=== PATIENT | female | born 1950 | race Caucasian/White ===

== ENCOUNTER 2022-03-24 05:47 | Inpatient (IN) | payer MEDICARE, MEDICAID ==
[2022-03-18 12:28] LABS: BASOPHILS # (AUTO) 0.1 X10'3 (0-0.2); BASOPHILS % (AUTO) 0.9 % (0-1); EOSINOPHILS # (AUTO) 0.2 X10'3 (0-0.9); EOSINOPHILS % (AUTO) 2.8 % (0-6); LYMPHOCYTES % (AUTO) 28.4 % (21-51); MEAN CORPUSCULAR HEMOGLOBIN 30.6 PG (27.0-31.0); MEAN CORPUSCULAR HGB CONC 33.2 g/dL (33.0-36.5); MEAN CORPUSCULAR VOLUME 92.1 FL (78-98); MEAN PLATELET VOLUME 7.2 FL (7.4-10.4); MONOCYTES # (AUTO) 0.5 X10'3 (0-0.9); MONOCYTES % (AUTO) 7.3 % (2-12); NEUTROPHILS # (AUTO) 4.2 X10'3 (1.8-7.7); NEUTROPHILS % (AUTO) 60.6 % (42-75); PRE OP HEMATOCRIT 47.6 % (35.0-45.0); PRE OP HEMOGLOBIN 15.8 g/dL (12.0-16.0); PRE OP PLATELET COUNT 250 X10'3 (140-440); RED BLOOD COUNT 5.17 X10'6 (4.20-5.60); RED CELL DISTRIBUTION WIDTH 14.7 % (11.5-14.5)
[2022-03-18 12:33] LABS: ALBUMIN/GLOBULIN RATIO 1.1 (1.1-1.5); ALKALINE PHOSPHATASE 116 IU/L (46-116); BLOOD UREA NITROGEN 15 MG/DL (7-18); BUN/CREATININE RATIO 20.3 (6.6-38.0); CALCIUM 9.3 MG/DL (8.5-10.1); CHLORIDE 103 MMOL/L (99-107); CREATININE 0.74 MG/DL (0.40-0.90); PRE OP ALT 34 U/L (30-65); PRE OP ANION GAP 6 (8-16); PRE OP AST 24 U/L (10-37); PRE OP BILIRUB, TOTAL 0.3 MG/DL (0.0-1.0); PRE OP GLUCOSE 102 MG/DL (70-104); PRE OP POTASSIUM 3.7 MMOL/L (3.4-5.1); PRE OP SODIUM 138 MMOL/L (135-145); TOTAL CARBON DIOXIDE 28.8 MMOL/L (24-32); TOTAL PROTEIN 7.8 G/DL (6.4-8.2); eGFR 77 ML/MIN
[~2022-03-24] VITALS: Ht 152.4 cm; Wt 47.7 kg
[2022-03-24] VITALS (37 sets, daily range): BP systolic 126–183; BP diastolic 78–109
[~2022-03-24 05:47] MED LIST: AMLO5TAB PO; ASPI-842 PO; BUPR-94 PO; CALC600T35 PO; CARI-75 PO; CHOL50CA2 PO; DOCUMENT DATE & TIME OF BETA-BLOCKER PO ONE; DOL10T PO; DOXE25CA3 PO; HAIR,SKIN,NAILS; INDOCYANINE GREEN 25 MG/10 ML VIAL IV ONE; LISI20TA28 PO; MALTODEXTRIN/FRUCTOSE 0.68 KCAL/ML LIQUID 296ML BOTTLE PO ONE; METO-395 PO; MULT-1249 PO; OMEG-5 PO; PRAV40TA3 PO; TRAM50TA2 PO; TRAZ150T78 PO; VITA-268 PO; VITE400C PO; ceFOXitin 2GM-NS 100mL ADDvant 100 ML IV ONE; famotidine 20mg tablet PO ONE; metroNIDAZOLE-Flagyl 500mg/NS 100ML IVPB IV ONE; ringers solution, lacted 1,000 ML IV SCH
[2022-03-24] MEDS ORDERED: ALBU18HF2 INH (06:34)
[2022-03-24] MEDS ORDERED: IPRA4AER IH (06:34)
[2022-03-24] MEDS ORDERED: ringers solution, lacted 1,000 ML IV SCH (07:40)
[2022-03-24] MEDS ORDERED: morphine 4 MG/ML inj SYRINge IV PRN (07:40)
[2022-03-24] MEDS ORDERED: proCHLORperazine 10 MG/2 ml inj IV PRN (07:40)
[2022-03-24] MEDS ORDERED: meperidine/PF 25mg/ml syringe IV PRN ×3 (07:40)
[2022-03-24] MEDS ORDERED: ondansetron/PF 4mg/2ml inj IV PRN ×2 (07:40→12:00)
[2022-03-24] MEDS ORDERED: morphine 2 MG/ML inj. syringe IV PRN (07:40)
[2022-03-24] MEDS ORDERED: midazolam 1 mg/ML 2ml injection ONE (07:41)
[2022-03-24] MEDS ORDERED: fentaNYL /PF 50mcg/ml 5ml ampule ONE ×2 (07:41→10:04)
[2022-03-24] MEDS ORDERED: ipratropium/albuterol 3ml nebule NEB ONE (07:41)
[2022-03-24] MEDS ORDERED: BUPIVAcaine 0.5% inj/PF 30 ML ONE (07:46)
[2022-03-24] MEDS ORDERED: tobramycin 40mg/ml inj ONE (07:46)
[2022-03-24] MEDS ORDERED: LIDOCAINE 1%/EPI 1:100,000 inj. 10 ML multi-dose vial ONE (07:46)
[2022-03-24] MEDS ORDERED: LIDOcaine 2% (20mg/ml) 5ml vial ONE (07:47)
[2022-03-24] MEDS ORDERED: propofol inj 20 ML IV ONE (07:47)
[2022-03-24] MEDS ORDERED: rocuronium 10mg/ml inj IV ONE ×2 (09:06)
[2022-03-24] MEDS ORDERED: hydrALAZINE 20mg/ml inj. IV ONE (09:06)
[2022-03-24] MEDS ORDERED: BUPIVAcaine 0.5% inj/PF 30 ml vial IJ ONE (09:58)
[2022-03-24] MEDS ORDERED: ondansetron/PF 4mg/2ml inj ONE (11:38)
[2022-03-24] MEDS ORDERED: acetaminophen 1,000mg/100ml IV 100 ML IV ONE (11:39)
--- NOTE | 2022-03-24 11:57 | NUR ---
Received from OR via BED, accompanied by Anesthesiologist DR DOYLE and report given by Anesthesiologist AND SUPERVISOR DRY PASTE. PT DROWSY, DENIES PAIN, ABDOMEN W/ 3 LAP SITES W/BANDAIDS CDI, DANIELA TO RLQ ABDOMEN W/SANGUINOUS DRAINAGE IN DANIELA TO BULB SX. Addendum: 03/24/22 at 1224 by Mira Rebollar RN Amended: Links added.
[2022-03-24] MEDS ORDERED: normal saline 1000ml 1,000 ML IV SCH (12:00)
[2022-03-24] MEDS ORDERED: naloxone 0.4 mg/ml inj IV PRN (12:00)
[2022-03-24] MEDS: HYDROmorph/NS 0.2 mg/ml PCA 100 ML IV SCH ×6 (13:52→23:00)
[2022-03-24] MEDS ORDERED: ketorolac trometh. 30mg/ml inj. IM SCH (14:00)
[2022-03-24] MEDS: acetaminophen 1,000mg/100ml IV 100 ML IV SCH ×2 (14:00→22:21)
[2022-03-24] MEDS ORDERED: ipratropium/albuterol 3ml nebule NEB PRN (15:10)
[2022-03-24] MEDS ORDERED: albuterol 2.5 MG/3 ML nebule NEB SCH (15:20)
[2022-03-24] MEDS: metoprolol succinate 25mg (24-HOUR) SR. Tablet PO SCH (15:32)
[2022-03-24] MEDS: ceFOXitin inj 1,000 MG in normal saline 100ml IV soln 100 ML IV SCH (15:52)
--- NOTE | 2022-03-24 16:47 | NUR ---
Transferred via BED, W/1 LARGE BAG OF Belongings, CELL PHONE AND DIE BAKER, GLASSES AND UPPER/LOWER DENTURES IN PTS MOUTH. BEDSIDE REPORT GIVEN TO RECEIVING RN, JOHNL, CALL LIGHT GIVEN, SIDE RAILS UP X 2, PT ALERT TO SAFETY, CALL LIGHT, ROOM. Special Issues communicated to receiving nurse. YES. Addendum: 03/24/22 at 1707 by Mira Rebollar RN Amended: Links added.
--- NOTE | 2022-03-24 17:15 | NUR ---
Patient in room [facility]. I have received report from Mira MUNOZ and had the opportunity to ask questions and assume patient care.
[2022-03-24] MEDS: metroNIDAZOLE-Flagyl 500mg/NS 100 ML IV SCH (17:24)
[2022-03-24] MEDS: potassium CL 20mEq in D5-1/2NS 1,000 ML IV SCH (17:27)
--- NOTE | 2022-03-24 17:45 | NUR ---
patient appears comfortable using dilaudid cadd pain well controlled.. Addy drain 70mls serosang drainage . lap sites x4 CDI. commenced on post ops will continue to monitor
--- NOTE | 2022-03-24 18:24 | NUR ---
Problems reprioritized. Patient report given, questions answered & plan of care reviewed with FLORINDA MUNOZ.
[2022-03-24] MEDS: albuterol 2.5 MG/3 ML nebule NEB SCH ×2 (18:58→22:47)
[2022-03-24] MEDS: heparin, porcine 5000 units/ml vial SQ SCH (19:41)
[2022-03-24] MEDS: ketorolac tromethamine 15mg/ml inj. IV SCH (19:42)
[2022-03-24] MEDS: docusate sod 100mg capsule PO SCH (19:42)
[2022-03-24] MEDS: atorvastatin 10mg tablet PO SCH (22:21)
[2022-03-24] MEDS: traZODone 150mg tablet PO SCH (22:21)
[2022-03-24] MEDS: doxepin 25mg capsule PO SCH (22:22)
[2022-03-24] MEDS: polyethylene glycol 3350 17gm powd pack PO SCH (22:24)
[2022-03-25] MEDS: ceFOXitin inj 1,000 MG in normal saline 100ml IV soln 100 ML IV SCH (00:25)
[2022-03-25] MEDS: metroNIDAZOLE-Flagyl 500mg/NS 100 ML IV SCH ×3 (00:26→17:07)
[2022-03-25] MEDS: HYDROmorph/NS 0.2 mg/ml PCA 100 ML IV SCH ×12 (01:00→23:00)
[2022-03-25] MEDS: potassium CL 20mEq in D5-1/2NS 1,000 ML IV SCH ×2 (01:20→21:56)
[2022-03-25 02:00] VITALS: BP 165/77
[2022-03-25] MEDS: albuterol 2.5 MG/3 ML nebule NEB SCH ×6 (02:46→23:00)
[2022-03-25] MEDS: acetaminophen 1,000mg/100ml IV 100 ML IV SCH ×2 (03:40→08:19)
[2022-03-25] MEDS: ketorolac tromethamine 15mg/ml inj. IV SCH ×4 (03:41→20:35)
[2022-03-25 04:34] LABS: BASOPHILS % (AUTO) 0.5 % (0-1); EOSINOPHILS # (AUTO) 0.1 X10'3 (0-0.9); EOSINOPHILS % (AUTO) 1.1 % (0-6); HEMATOCRIT 40.5 % (35.0-45.0); HEMOGLOBIN 13.3 g/dl (12.0-16.0); LYMPHOCYTES # (AUTO) 1.6 X10'3 (1.1-4.8); LYMPHOCYTES % (AUTO) 21.4 % (21-51); MEAN CORPUSCULAR HEMOGLOBIN 30.2 PG (27.0-31.0); MEAN CORPUSCULAR HGB CONC 32.8 g/dL (33.0-36.5); MEAN CORPUSCULAR VOLUME 91.9 FL (78-98); MEAN PLATELET VOLUME 7.3 FL (7.4-10.4); MONOCYTES # (AUTO) 0.6 X10'3 (0-0.9); MONOCYTES % (AUTO) 7.8 % (2-12); NEUTROPHILS # (AUTO) 5.2 X10'3 (1.8-7.7); NEUTROPHILS % (AUTO) 69.2 % (42-75); PLATELET COUNT 235 X10'3 (140-440); RED BLOOD COUNT 4.41 X10'6 (4.20-5.60); RED CELL DISTRIBUTION WIDTH 15.4 % (11.5-14.5); WHITE BLOOD COUNT 7.5 X10'3 (4.5-11.0)
[2022-03-25 04:38] LABS: ALBUMIN 3.1 G/DL (3.4-5.0); ANION GAP 8 (8-16); BLOOD UREA NITROGEN 8 MG/DL (7-18); BUN/CREATININE RATIO 11.3 (6.6-38.0); CALCIUM 8.6 MG/DL (8.5-10.1); CHLORIDE 106 MMOL/L (99-107); CREATININE 0.71 MG/DL (0.40-0.90); GLUCOSE 122 MG/DL (70-104); POTASSIUM 3.3 MMOL/L (3.5-5.1); SODIUM 140 MMOL/L (135-145); TOTAL CARBON DIOXIDE 26.3 MMOL/L (24-32); eGFR 81 ML/MIN
[2022-03-25 06:00] VITALS: BP 123/69
--- NOTE | 2022-03-25 06:49 | NUR ---
Problems reprioritized. Patient report given, questions answered & plan of care reviewed with TAMMY CAVANAUGH.
[2022-03-25] MEDS: heparin, porcine 5000 units/ml vial SQ SCH ×2 (08:03→20:35)
[2022-03-25] MEDS: buPROPion SR 150mg tablet PO SCH (08:03)
[2022-03-25] MEDS: methadone 10mg tablet PO SCH (08:03)
[2022-03-25] MEDS: metoprolol succinate 25mg (24-HOUR) SR. Tablet PO SCH (08:04)
[2022-03-25] MEDS: polyethylene glycol 3350 17gm powd pack PO SCH ×3 (08:04→20:36)
[2022-03-25] MEDS: docusate sod 100mg capsule PO SCH ×2 (08:04→20:34)
[2022-03-25] MEDS: amLODIPine 5mg tablet PO SCH (08:15)
[2022-03-25 10:00] VITALS: BP 150/87
[2022-03-25] MEDS ORDERED: PCA WASTE DOCUMENTATION MC SCH (14:10)
[2022-03-25] MEDS ORDERED: ondansetron 4mg rapidly disintigrating tab PO PRN (15:20)
[2022-03-25 18:00] VITALS: BP 136/68
--- NOTE | 2022-03-25 18:44 | NUR ---
Patient in room [facility]. I have received report from AFSHAN MUNOZ and had the opportunity to ask questions and assume patient care.
[2022-03-25] MEDS: traZODone 150mg tablet PO SCH (20:35)
[2022-03-25] MEDS: atorvastatin 10mg tablet PO SCH (20:35)
[2022-03-25] MEDS: doxepin 25mg capsule PO SCH (20:35)
[2022-03-25] MEDS: psyllium seed 3.4 gm packet PO SCH (20:36)
[2022-03-25 22:00] VITALS: BP 162/76
[2022-03-26] MEDS: HYDROmorph/NS 0.2 mg/ml PCA 100 ML IV SCH ×3 (01:00→05:00)
[2022-03-26] MEDS: albuterol 2.5 MG/3 ML nebule NEB SCH ×6 (03:00→23:00)
[2022-03-26] MEDS: ketorolac tromethamine 15mg/ml inj. IV SCH ×4 (03:37→19:37)
[2022-03-26] MEDS ORDERED: magnesium hydroxide 30ml (MOM) UD suspension PO ONE ×2 (05:55→06:00)
[2022-03-26 06:00] VITALS: BP 197/118
[2022-03-26] MEDS ORDERED: HYDROcodone/acetaminophen 5mg/325mg tablet PO PRN (06:00)
[2022-03-26 06:20] LABS: BASOPHILS # (AUTO) 0.1 X10'3 (0-0.2); BASOPHILS % (AUTO) 0.8 % (0-1); EOSINOPHILS # (AUTO) 0.2 X10'3 (0-0.9); EOSINOPHILS % (AUTO) 2.7 % (0-6); HEMATOCRIT 44.1 % (35.0-45.0); HEMOGLOBIN 14.7 g/dl (12.0-16.0); LYMPHOCYTES # (AUTO) 1.1 X10'3 (1.1-4.8); LYMPHOCYTES % (AUTO) 15.8 % (21-51); MEAN CORPUSCULAR HEMOGLOBIN 30.6 PG (27.0-31.0); MEAN CORPUSCULAR HGB CONC 33.4 g/dL (33.0-36.5); MEAN CORPUSCULAR VOLUME 91.8 FL (78-98); MEAN PLATELET VOLUME 7.5 FL (7.4-10.4); MONOCYTES # (AUTO) 0.5 X10'3 (0-0.9); MONOCYTES % (AUTO) 7.3 % (2-12); NEUTROPHILS # (AUTO) 5.3 X10'3 (1.8-7.7); NEUTROPHILS % (AUTO) 73.4 % (42-75); PLATELET COUNT 262 X10'3 (140-440); RED BLOOD COUNT 4.81 X10'6 (4.20-5.60); WHITE BLOOD COUNT 7.2 X10'3 (4.5-11.0)
[2022-03-26 06:29] LABS: ALBUMIN 3.6 G/DL (3.4-5.0); ANION GAP 7 (8-16); BLOOD UREA NITROGEN 9 MG/DL (7-18); BUN/CREATININE RATIO 15.5 (6.6-38.0); CALCIUM 9.4 MG/DL (8.5-10.1); CHLORIDE 104 MMOL/L (99-107); CREATININE 0.58 MG/DL (0.40-0.90); GLUCOSE 122 MG/DL (70-104); POTASSIUM 3.5 MMOL/L (3.5-5.1); SODIUM 139 MMOL/L (135-145); TOTAL CARBON DIOXIDE 27.9 MMOL/L (24-32); eGFR > 90 ML/MIN
--- NOTE | 2022-03-26 06:40 | NUR ---
Problems reprioritized. Patient report given, questions answered & plan of care reviewed with ROSALIA MUNOZ.
--- NOTE | 2022-03-26 07:03 | NUR ---
Patient in room [facility]. I have received report from Cynthia MUNOZ and had the opportunity to ask questions and assume patient care.
[2022-03-26] MEDS: methadone 10mg tablet PO SCH (07:37)
[2022-03-26] MEDS: buPROPion SR 150mg tablet PO SCH (07:37)
[2022-03-26] MEDS: metoprolol succinate 25mg (24-HOUR) SR. Tablet PO SCH (07:38)
[2022-03-26] MEDS: amLODIPine 5mg tablet PO SCH (07:38)
[2022-03-26] MEDS: docusate sod 100mg capsule PO SCH ×2 (07:38→20:00)
[2022-03-26] MEDS: heparin, porcine 5000 units/ml vial SQ SCH ×2 (07:39→21:08)
[2022-03-26] MEDS: polyethylene glycol 3350 17gm powd pack PO SCH ×3 (07:39→21:05)
[2022-03-26 10:00] VITALS: BP 178/115
[2022-03-26] MEDS ORDERED: amLODIPine 5mg tablet PO ONE (17:05)
[2022-03-26] MEDS ORDERED: hydrALAZINE 20mg/ml inj. IV ONE (17:05)
[2022-03-26] MEDS ORDERED: hydrALAZINE 20mg/ml inj. IV PRN (17:05)
[2022-03-26 18:00] VITALS: BP 148/101
--- NOTE | 2022-03-26 18:24 | NUR ---
Problems reprioritized. Patient report given, questions answered & plan of care reviewed with Stacia MUNOZ.
[2022-03-26 18:45] VITALS: BP 139/95
[2022-03-26] MEDS: psyllium seed 3.4 gm packet PO SCH (19:36)
[2022-03-26] MEDS: doxepin 25mg capsule PO SCH (21:06)
[2022-03-26] MEDS: traZODone 150mg tablet PO SCH (21:06)
[2022-03-26] MEDS: lisinopril 20mg tablet PO SCH (21:07)
[2022-03-26] MEDS: atorvastatin 10mg tablet PO SCH (21:07)
[2022-03-26 22:00] VITALS: BP 113/64
--- NOTE | 2022-03-26 23:04 | NUR ---
Charting by Sandy MAHAJAN reviewed by Rosemarie MUNOZ
[2022-03-27] MEDS: ketorolac tromethamine 15mg/ml inj. IV SCH ×2 (02:31→08:02)
[2022-03-27] MEDS: albuterol 2.5 MG/3 ML nebule NEB SCH ×3 (03:00→11:41)
--- NOTE | 2022-03-27 05:58 | NUR ---
reported to days. noted pt had small bm with some watery bm as well this am. anticipate home soon.
[2022-03-27 06:29] LABS: BASOPHILS # (AUTO) 0.1 X10'3 (0-0.2); EOSINOPHILS # (AUTO) 0.5 X10'3 (0-0.9); EOSINOPHILS % (AUTO) 7.4 % (0-6); HEMATOCRIT 41.5 % (35.0-45.0); HEMOGLOBIN 13.9 g/dl (12.0-16.0); LYMPHOCYTES # (AUTO) 1.5 X10'3 (1.1-4.8); LYMPHOCYTES % (AUTO) 23.4 % (21-51); MEAN CORPUSCULAR HEMOGLOBIN 30.6 PG (27.0-31.0); MEAN CORPUSCULAR HGB CONC 33.4 g/dL (33.0-36.5); MEAN CORPUSCULAR VOLUME 91.6 FL (78-98); MEAN PLATELET VOLUME 7.6 FL (7.4-10.4); MONOCYTES # (AUTO) 0.5 X10'3 (0-0.9); MONOCYTES % (AUTO) 8.3 % (2-12); NEUTROPHILS # (AUTO) 3.9 X10'3 (1.8-7.7); NEUTROPHILS % (AUTO) 59.9 % (42-75); PLATELET COUNT 239 X10'3 (140-440); RED BLOOD COUNT 4.53 X10'6 (4.20-5.60); RED CELL DISTRIBUTION WIDTH 14.6 % (11.5-14.5); WHITE BLOOD COUNT 6.5 X10'3 (4.5-11.0)
[2022-03-27 06:30] VITALS: BP 185/99
[2022-03-27 06:39] LABS: ANION GAP 10 (8-16); BLOOD UREA NITROGEN 12 MG/DL (7-18); BUN/CREATININE RATIO 19.4 (6.6-38.0); CALCIUM 9.4 MG/DL (8.5-10.1); CHLORIDE 104 MMOL/L (99-107); CREATININE 0.62 MG/DL (0.40-0.90); GLUCOSE 94 MG/DL (70-104); POTASSIUM 3.8 MMOL/L (3.5-5.1); SODIUM 141 MMOL/L (135-145); TOTAL CARBON DIOXIDE 27.3 MMOL/L (24-32); eGFR > 90 ML/MIN
--- NOTE | 2022-03-27 06:54 | NUR ---
Patient in room [facility]. I have received report from Stacia MUNOZ and had the opportunity to ask questions and assume patient care.
[2022-03-27] MEDS: buPROPion SR 150mg tablet PO SCH (07:59)
[2022-03-27] MEDS: methadone 10mg tablet PO SCH (07:59)
[2022-03-27] MEDS: docusate sod 100mg capsule PO SCH (08:00)
[2022-03-27] MEDS ORDERED: amLODIPine 5mg tablet PO SCH (08:00)
[2022-03-27] MEDS: hyDRALAzine 10mg tablet PO SCH ×2 (08:00)
[2022-03-27] MEDS: metoprolol succinate 25mg (24-HOUR) SR. Tablet PO SCH (08:00)
[2022-03-27] MEDS: lisinopril 20mg tablet PO SCH (08:01)
[2022-03-27] MEDS: polyethylene glycol 3350 17gm powd pack PO SCH ×2 (08:02→13:00)
[2022-03-27] MEDS: heparin, porcine 5000 units/ml vial SQ SCH (08:02)
[2022-03-27 10:58] VITALS: BP 133/93
--- NOTE | 2022-03-27 13:30 | NUR ---
Pt DC to Home with sister. pt is A & O x 4 and in no apparent distress. Pt verbalizes understanding of all DC orders and the importance of following up with DR Castellano and PCP. Pt able to teach back S & S of infection and when to seek 's care. PICC removed by Toby MUNOZ resource nurse. I was send to lunch. On my returned, resource nurse startes picc was removed Intact. Pt was taken to the front before i was back from lunch.
--- NOTE | 2022-04-07 13:34 | NUR ---
Case Management DC follow up: Telephoned Patient. Left VM with name, telephone number, and reason for call.
== END 2022-03-27 13:28 | disposition home or self-care (01) | DRG 330 ==
LOC: PAS IN 05:47 → SUR 3N 16:40
PROVIDERS: ADMIT Colon & Rectal Surgery; ATTEND Colon & Rectal Surgery
PROC: 0FT44ZZ Resection of Gallbladder, Percutaneous Endoscopic Approach (ICD-10-PCS; 2022-03-24)
PROC: 8E0W4CZ Robotic Assisted Procedure of Trunk Region, Percutaneous Endoscopic Approach (ICD-10-PCS; 2022-03-24)
PROC: 02HV33Z Insertion of Infusion Device into Superior Vena Cava, Percutaneous Approach (ICD-10-PCS; 2022-03-24)
PROC: B548ZZA Ultrasonography of Superior Vena Cava, Guidance (ICD-10-PCS; 2022-03-24)
PROC: BF532Z0 Other Imaging of Gallbladder and Bile Ducts using Fluorescing Agent, Intraoperative (ICD-10-PCS; 2022-03-24)
PROC: 0DQP4ZZ Repair Rectum, Percutaneous Endoscopic Approach (ICD-10-PCS; principal; 2022-03-24 07:42)
DX: K62.3 Rectal prolapse (principal); C19 Malignant neoplasm of rectosigmoid junction; Q43.8 Other specified congenital malformations of intestine; K82.4 Cholesterolosis of gallbladder; E78.5 Hyperlipidemia, unspecified; F41.9 Anxiety disorder, unspecified; G89.4 Chronic pain syndrome; Z96.643 Presence of artificial hip joint, bilateral; I10 Essential (primary) hypertension; F32.A Depression, unspecified; F11.90 Opioid use, unspecified, uncomplicated; F17.210 Nicotine dependence, cigarettes, uncomplicated; I16.0 Hypertensive urgency; I25.10 Atherosclerotic heart disease of native coronary artery without angina pectoris; J44.9 Chronic obstructive pulmonary disease, unspecified; Z79.82 Long term (current) use of aspirin; Z79.899 Other long term (current) drug therapy; Z80.1 Family history of malignant neoplasm of trachea, bronchus and lung; Z80.8 Family history of malignant neoplasm of other organs or systems; Z88.0 Allergy status to penicillin
CPT/HCPCS: 36415; 36569; 71046; 76942; 80048; 80053; 82948; 85025; 86885; 86900; 86901; 87081; 88304; 93005; 94640; 94760; A4346; A4355; A4615; A4618; A6212; A6258; A6402; A6449; A7000; C1751; G0378; J0131; J0360; J0694; J1170; J1644; J1885; J2250; J2405; J2704; J3010; J3260; J3480; J3490; J7030; J7120; S0020